=== PATIENT | female | born 1995 | race Caucasian/White ===

== ENCOUNTER → 2017-12-07 12:01 | Outpatient (CLI) | payer OTHER, MEDICAID, SELFPAY ==
--- NOTE | 2017-12-07 | DI.US.S_ITS ---
PROCEDURE: US THYROID INDICATIONS: ABNORMAL THYROID LABS TECHNIQUE: Real-time scanning was performed of the thyroid gland, with image documentation. COMPARISON: None. FINDINGS: Right: Thyroid lobe measures 5.8 x 1.6 x 1.7 cm, and is homogeneous in echotexture. Left: Thyroid lobe measures 6.1 x 1.7 x 1.5 cm, and is homogenous in echotexture. Isthmus: 3.0 mm thick. Nodule number: 1 Location: Left inferior Size: 2.6 x 1.2 x 1.4 cm. Composition: Solid Echogenicity: Hypoechoic Shape: wider than tall. Margins: Smooth Echogenic foci: None Total points: 4 ACR TI-RADS category: Moderately suspicious Nodule number: 2 Location: Right mid Size: 0.8 x 0.7 x 0.6 cm Composition: Solid Echogenicity: Hypoechoic Shape: wider than tall. Margins: Smooth Echogenic foci: None Total points: 4 ACR TI-RADS category: Moderately suspicious IMPRESSION: Bilateral thyroid nodules as above. Recommend sonographic guided fine needle aspiration involving the left inferior nodule for pathologic diagnosis. Followup of the right subcentimeter nodule as below. ACR TI-RADS definitions and recommendations: TI-RADS 1 (benign): 0 points. FNA not needed. TI-RADS 2 (not suspicious): 2 points. FNA not needed. TI-RADS 3 (mildly suspicious): 3 points. * FNA if 2.5 cm or larger, follow up if 1.5 cm or larger (at 1, 3, and 5 years). TI-RADS 4 (moderately suspicious): 4-6 points. * FNA if 1.5 cm or larger, follow up if 1 cm or larger (at 1, 2, 3, and 5 years). TI-RADS 5 (highly suspicious): 7 points or more. * FNA if 1 cm or larger, follow up if 0.5 cm or larger (every year for 5 years). Dictated by: Ari MILLS Interpreted: Zoila Borja MD on 12/07/2017 at 13:09 Approved by: Zoila Borja M.D. on 12/07/2017 at 16:22
== END ==
PROVIDERS: Visit Provider Nurse Practitioner Family
DX: E04.2 Nontoxic multinodular goiter (principal)
CPT/HCPCS: 76536

== ENCOUNTER → 2017-12-15 13:32 | Outpatient (CLI) | payer OTHER, MEDICAID, SELFPAY ==
--- NOTE | 2017-12-15 | PATH_ITS ---
Note [facility] Accession Number: [id number] TESTS RESULT FLAG UNITS REF RANGE LAB Clinician Provided Cytology Information No. of containers..01 ThinPrep Vial No. of containers..10 Previously Prepared Cytology Slide LEFT THYROID NODULE DIAGNOSIS: 02 LEFT THYROID NODULE NEGATIVE FOR MALIGNANT CELLS. SPECIMEN CONSISTS OF BENIGN FOLLICULAR CELLS, HEMOSIDERIN-LADEN MACROPHAGES, COLLOID, AND BLOOD. THIS PATTERN IS CONSISTENT WITH A COLLOID NODULE. Pathologist ICD10: 02 E04.1 02 Mariana Fajardo MD, Pathologist NPI- [id number] Ajit Silver, Diesel Electrician ([facility]) 01 30 CC, PINK, CLEAR RECEIVED: 5 ALCOHOL FIXED AND 5 QUICK STAINED SLIDES. /VDU FLAG LEGEND: L-Low Normal,H-High Normal,LL-Alert Low,HH-Alert High <-Panic Low,>-Panic High,A-Abnormal,AA-Critical Abnormal Performed at: 01 =Z [facility] [address], [place] [address] Tristan Walker MD, 02 [facility] [address] [place] [id number] Francesco Hoskins MD, Performed at: 01 [facility] [address], [place], [place] [id number] MD Tristan Walker MD Phone: [phone]
--- NOTE | 2017-12-15 | DI.US.S_ITS ---
PROCEDURE: US FINE NEEDLE ASPIRATION INDICATIONS: THYROID NODULE TECHNIQUE: The indications, alternatives, benefits, risks, and complications of the procedure were explained to the patient. Written informed consent was obtained and placed in the chart. The area of interest was examined sonographically and a site was chosen for ultrasound guided percutaneous sampling. The skin was prepared and draped in the usual fashion, and anesthetized with 1% lidocaine infiltrated from the skin down to the lesion. Multiple passes were then performed, with contents emptied into an appropriate pathology specimen container. A bandage was applied to the area of access at completion of the study. COMPARISON: None. FINDINGS: Location(s) of lesion(s) sampled: Lower pole of left thyroid lobe [place]: 25 gauge hypodermic needles. Number of passes: 5 Medications: 1% lidocaine for local anaesthesia. Complications: None. IMPRESSION: Successful ultrasound-guided left thyroid lobe fine needle aspiration, with cytology results pending. Dictated by: Kristofer Quinn M.D. on 12/15/2017 at 16:22 Approved by: Kristofer Quinn M.D. on 12/15/2017 at 16:22
== END ==
PROVIDERS: Visit Provider Nurse Practitioner Family
DX: E04.1 Nontoxic single thyroid nodule (principal)
CPT/HCPCS: 10022; 76942

== ENCOUNTER 2018-08-19 11:32 | Emergency (ER) | payer OTHER, MEDICAID, SELFPAY ==
[2018-08-19 11:55] VITALS: BP 129/72; PULSE 85; RESP 15; TEMP 37.3; O2SAT 100; BMI 25.6
--- NOTE | 2018-08-19 12:48 | ED.WOUNDLAC ---
HPI - Wound/Laceration <MARSHALL Mclean - Last Filed: 08/19/18 12:52> General Chief Complaint: Wound/Laceration Stated Complaint: left foot cut 30 mins ago Time Seen by Provider: 08/19/18 12:23 Source: patient Mode of arrival: ambulatory Limitations: no limitations History of Present Illness HPI narrative: pt says she stepped on piece of broken glass in her kitchen, had socks on, cut to bottom of L foot, denies any other injury/issue/concerns, Td unknown Onset (ago): minute(s) Extremity Location: Left: foot Place: home Patient tetanus UTD: No Context: accidental Associated symptoms: none Treatments prior to arrival: bandage Related Data Allergies Allergy/AdvReac Type Severity Reaction Status Date / Time No Known Drug Allergies Allergy Verified 08/19/18 11:55 Review of Systems <MARSHALL Mclean - Last Filed: 08/19/18 12:52> Review of Systems ROS Unobtainable: All systems reviewed & are unremarkable except as noted in HPI and below Constitutional Reports as per HPI and Reports system reviewed and no additional complaints, except as docu Musculoskeletal Reports as per HPI, Denies abnormal gait, Denies deformity, Denies limited range of motion, Denies muscle weakness and Denies numbness Integumentary/Breasts Reports as per HPI, Denies unusual bruising and Reports wounds Neurologic Denies abnormal gait and Denies numbness PFSH <MARSHALL Mclean - Last Filed: 08/19/18 12:52> Family History (Updated 03/20/16 @ 00:00 by Conversion Provider) Grandmother Age: 73 Crohn's disease Hypertension Grandmother Age: 72 Thyroid cancer Diabetes mellitus Family History Grandmother Age: 73 Crohn's disease Hypertension Grandmother Age: 72 Thyroid cancer Diabetes mellitus Exam <MARSHALL Mclean - Last Filed: 08/19/18 12:52> Initial Vital Signs Initial Vital Signs: Vital Signs Temperature 99.1 F 08/19/18 11:55 Pulse Rate 85 08/19/18 11:55 Respiratory Rate 15 08/19/18 11:55 Blood Pressure 129/72 08/19/18 11:55 Pulse Oximetry 100 08/19/18 11:55 Const General: cooperative, healthy appearing, comfortable and well developed Nutritional Appearance: average body habitus Orientation: alert, awake and oriented x3 Resp Effort & Inspection: normal respiratory effort and able to speak in complete sentences Back/Spine/Pelvis Cervical Spine: cervical ROM normal Thoracic/Lumbar Spine: thoraco-lumbar ROM limited Skin General: no rashes or lesions noted, elasticity normal, turgor normal and warm Wounds: wounds noted (1cm linear superficial lac to bottom of L foot near the ball of the foot) Other: no active bleeding, mild tenderness, no closure needed Neuro General: alert, awake and oriented x3 Cranial Nerves: CN's II-XI intact bilaterally Cognition: normal cognition Speech: speech normal Motor: muscle tone normal throughout Sensory Exam: no sensory deficits noted Psych Appearance: grossly normal and well kempt Mental Status: mental status grossly normal Speech and Movement: speech and movement normal Mood: congruent mood Affect: normal affect Attitude: cooperative Thought Process: normal Thought Content: normal Judgment: judgment good <Pattie Castellanos DO - Last Filed: 08/20/18 10:42> Initial Vital Signs Initial Vital Signs: Vital Signs Temperature 99.1 F 08/19/18 11:55 Pulse Rate 85 08/19/18 11:55 Respiratory Rate 15 08/19/18 11:55 Blood Pressure 129/72 08/19/18 11:55 Pulse Oximetry 100 08/19/18 11:55 Course <MARSHALL Mclean - Last Filed: 08/19/18 12:52> Course Narrative: did discuss risks of retained fb from sock particles into cut and s/s to watch out for and importance of wound care and irrigation at home Vital Signs - 8 hr 08/19/18 11:55 Temperature 99.1 F Pulse Rate 85 Respiratory Rate 15 Blood Pressure 129/72 Pulse Oximetry 100 <Pattie Castellanos DO - Last Filed: 08/20/18 10:42> Vital Signs - 8 hr 08/19/18 11:55 Temperature 99.1 F Pulse Rate 85 Respiratory Rate 15 Blood Pressure 129/72 Pulse Oximetry 100 MDM - Wound/Laceration <MARSHALL Mclean - Last Filed: 08/19/18 12:52> Differential Diagnosis Differential diagnosis: Likely laceration, abrasion, avulsion of skin and other (fb) Discharge Plan Departure Patient Disposition: Home Clinical Impression: Laceration Discharge Date/Time: 08/19/18 14:01 Interventions: ED Discharge Assessment Last Done: 08/19/18 13:30 Instructions: DI for Minor Laceration Referrals: Kanu Montoya MD [Physician] - Daysi Guevara [Medical Student] - Darius Feliciano MD [Physician] - (follow up with PCP or clinic for wound recheck as needed in approx 3 days) <Pattie Castellanos DO - Last Filed: 08/20/18 10:42> Cosign ED Attending Louisaature Attestation: I was immediately available in the department for consultation. Documentation has been reviewed. I agree with assessment and plan.
[2018-08-19 13:21] VITALS: BP 109/74; PULSE 74; RESP 16; TEMP 37.3; O2SAT 100
== END 2018-08-19 14:01 | disposition home or self-care (01) ==
PROVIDERS: Emergency Provider Nurse Practitioner
DX: S91.312A Laceration without foreign body, left foot, initial encounter (principal)
CPT/HCPCS: 99282; 99283